=== PATIENT | male | born 1955 | race Caucasian/White ===

== ENCOUNTER → 2016-11-17 | Outpatient (CLI) | payer MEDICAID ==
--- NOTE | ~2016-11-17 | CT138 ---
[facility] A Service of [facility] RADIOLOGY TEXT RESULTS PATIENT: GEMMA HUBBARD LOCATION: [facility] : 53 UNIT #: [id number] AGE: [address]: Rao Bethea MD SEX: M ORDER DR: [id number] [address] [address] [id number] O MR#: [id number] Acc #: [id number] NAME: GEMMA HUBBARD : 1955 SEX: M STUDY DATE/TIME: UNIT: [facility] ROOM: STUDY DESCRIPTION: CT Lung screening initial Attending Physician: Rao Bethea M.D. Referring Physician: Rao Bethea M.D. Ordering Physician: Rao Bethea M.D. Primary Care Physician: Rao Bethea M.D. MEDICAL IMAGING REPORT This report is preliminary unless electronic signature is present. EXAM CT lung cancer screening initial exam of 11/17/2016 0914 hours HISTORY 61-year-old man with history of 40 years of smoking 1 and half packs a day for a total pack year history of 60 years. Patient quit smoking 3 weeks ago. COMPARISON 10/10/[address] TECHNIQUE Low-dose helical CT images without contrast were obtained from the thoracic inlet through the adrenal glands. Sagittal and coronal reconstructions were performed. Total exam DLP 143 mGy - cm. This CT exam was performed with one or more of the following radiation dose reduction techniques: automatic exposure control, adjustment of mA and/or kV according to patient size, and iterative reconstruction. COMPARISON Chest CT with contrast 10/10/2013 FINDINGS Images through the thoracic inlet demonstrate no thyroid lesion or supraclavicular adenopathy. Images through the chest demonstrate no pathologic adenopathy. There are benign calcified left hilar, infrahilar nodes and calcified granulomata in the left lung without change. The aorta is normal in caliber as are the pulmonary arteries. Cardiac chambers and pericardium are unremarkable. The esophagus appears normal. Lung window images demonstrate moderate to severe emphysematous changes [facility] A Service of [facility] RADIOLOGY TEXT RESULTS PATIENT: GEMMA HUBBARD LOCATION: [facility] : 53 UNIT #: [id number] AGE: [address]: Rao Bethea MD SEX: M ORDER DR: with a few small blebs at the apices only. There is a peripheral nodule in the lateral right lower lobe abutting the pleural surface on image 142 measuring 8 mm unchanged from 10/10/2013 and therefore meeting criteria for benignity. No additional followup is required. There is linear scar at the right posteromedial lung base unchanged. There are no new or developing densities. Limited views through the upper abdomen demonstrate a normal appearance to the visualized portions of the liver, spleen and pancreas. The adrenal glands are normal. Bone window images demonstrate minimal endplate spurring and a few Schmorl nodes in the thoracic spine. No suspicious bone lesions or fractures. IMPRESSION 1. Negative lung cancer screening baseline exam. The patient has moderate underlying emphysematous changes with calcified granulomatous changes. There are linear to reticulonodular densities in the right lower lobe which are unchanged from prior chest CT 10/10/2013, and meet CT criteria for benignity. 2. Lung-RADS Category I: Negative. Continued annual screening low-dose CT in 12 months is recommended per Lung-RADS protocol. Dictated by... Sherry Castillo M.D. THIS IS AN ELECTRONICALLY VERIFIED REPORT Sherry Castillo M.D. at 11/17/2016 5:01 PM PADILLA/melinda TD: 11/17/2016 15:28 JOB #: [id number] MEDICAL IMAGING REPORT Page 1 of 1
== END | disposition home or self-care (01) ==
LOC: SCT 09:06
DX: F17.210 Nicotine dependence, cigarettes, uncomplicated (principal)
CPT/HCPCS: G0297